=== PATIENT | female | born 1965 | race Caucasian/White ===

== ENCOUNTER 2016-09-28 10:56 | Emergency (ER) | payer MEDICAID ==
[~2016-09-28] VITALS: Wt 71.0 kg
[~2016-09-28 10:56] MED LIST: CALC1TAB3 PO; FERR240T9 PO; LISI40TA9 PO; LORA1TAB PO
[2016-09-28] MEDS ORDERED: PANT40TA3 PO (11:23)
[2016-09-28] MEDS ORDERED: LIDOCAINE/MYLANTA 40 ML BTL PO ONE (11:30)
[2016-09-28 12:32] VITALS: BP 152/87; PULSE 74; RESP 18; TEMP 98
--- NOTE | 2016-09-28 13:47 | ERD ---
ER Documentation Chief Complaint Date/Time DATE: 09/28/16 TIME: 13:44 Chief Complaint CHEST PAIN X 3 DAYS HPI Patient is a 51-year-old female with hypertension who presents with whole body pain. She said that last night she started with bilateral leg cramps. She started her period yesterday as well. She now says that she has whole body pain including chest pain. She says "I feel like somebody is squishing me". She has abdominal pain. She denies nausea or vomiting. She tried some pills but does not know what it was. She saw her primary doctor 2 weeks ago and was told everything was okay. Upon review of old medical records this is the patient's 10th visit to the ER since 2010. ROS All systems reviewed and are negative except as per history of present illness. Medications Home Meds Active Scripts Pantoprazole* (Protonix*) 40 Mg Tablet.dr, 40 MG PO DAILY, #20 TAB Prov:JEAN PIERRE BREWER MD 09/28/16 Lorazepam* (Lorazepam*) 1 Mg Tablet, 1 MG PO Q8H Y for ANXIETY, #10 TAB Prov:FREDRICK CLAUDIO 01/03/16 Reported Medications Ferrous Gluconate (Iron) 1 Tab Tablet, 1 TAB PO DAILY, TAB 01/03/16 Calcium Carbonate/Vitamin D3 (Caltrate 600 W-D Tablet) 1 Tab Tablet, 1 TAB PO DAILY, TAB 01/03/16 Lisinopril* (Lisinopril*) 40 Mg Tablet, 40 MG PO DAILY, #30 TAB 01/03/16 Allergies Allergies: Coded Allergies: No Known Allergy (Unverified , 01/03/16) PMhx/Soc History of Surgery: Yes (CERVIX REMOVAL DUE CA) Anesthesia Reaction: No Hx Neurological Disorder: No Hx Respiratory Disorders: No Hx Cardiac Disorders: Yes (HTN) Hx Psychiatric Problems: No (ANXIETY ) Hx Miscellaneous Medical Probl: No Hx Alcohol Use: No Hx Substance Use: No Hx Tobacco Use: No Smoking Status: Never smoker FmHx Family History: diabetes Physical Exam Vitals Vital Signs Date Time Temp Pulse Resp B/P Pulse Ox O2 Delivery O2 Flow Rate FiO2 09/28/16 12:32 98.0 74 18 152/87 98 Room Air 09/28/16 11:00 98.0 71 18 152/72 99 Physical Exam Const: No acute distress Head: Atraumatic Eyes: Normal Conjunctiva ENT: Normal External Ears, Nose and Mouth. Neck: Full range of motion..~ No meningismus. Resp: Clear to auscultation bilaterally Cardio: Regular rate and rhythm, no murmurs Abd: Soft, non tender, non distended. Normal bowel sounds Skin: No petechiae or rashes Back: No midline or flank tenderness Ext: No cyanosis, or edema Neur: Awake and alert Psych: Anxious Results 24 hrs Current Medications Medications (Trade) Dose Ordered Sig/Jarrod Route PRN Reason Start Time Stop Time Status Last Admin Dose Admin Miscellaneous Medication (Gi Cocktail (2)) 40 ml ONCE ONCE PO 09/28/16 11:30 09/28/16 11:31 DC 09/28/16 11:36 Procedures/MDM EKG #1 read by me: Rate/Rhythm: Regular rate and rhythm at a normal rate Intervals: Normal Impression: No evidence of ischemia or arrhythmia EKG #2 read by me: Rate/Rhythm: Regular rate and rhythm at a normal rate Intervals: Normal Impression: No evidence of ischemia or arrhythmia Urine test is negative Patient is a 51-year-old with hypertension who presents with whole body pain. At this point I doubt acute coronary syndrome, pneumonia, pneumothorax, pulmonary embolism, or aortic dissection. I doubt appendicitis, cholestatic, pink otitis, or bowel obstruction. I am able to push deeply in all 4 quadrants without any pain. The patient has 2 normal EKGs. The patient has a negative test and I doubt or ectopic . The patient could return for any worsening symptoms. She should follow-up with her primary doctor within 24-48 hours for reevaluation. She was given a GI cocktail in the ER and will be given a prescription for Protonix for acid reduction. Departure Diagnosis: Primary Impression: Abdominal pain Abdominal location: generalized Qualified Code: R10.84 - Generalized abdominal pain Additional Impression: Chest pain Chest pain type: unspecified Qualified Code: R07.9 - Chest pain, unspecified type Condition: Fair Patient Instructions: Abdominal Pain, Chest Pain, Uncertain Cause Referrals: Dr. Huerta Additional Instructions: Llame al doctor MAANA y jasson carlos manuel RAOUL PARA DENTRO DE 1-2 STONE.Dgale a la secretaria que nosotros le instruimos hacer esta raoul.Avise o llame si hoffman condicin se empeora antes de la raoul. Regresa aqui si peor o no mejor. JEAN PIERRE BREWER MD Sep 28, 2016 13:47
== END 2016-09-28 12:34 | disposition home or self-care (01) ==
LOC: E/R 10:56
DX: R10.84 Generalized abdominal pain (principal); I10 Essential (primary) hypertension; Z85.41 Personal history of malignant neoplasm of cervix uteri
CPT/HCPCS: 93005; Z7610